=== PATIENT | female | born 1970 | race African-American/Black ===

== ENCOUNTER 2024-02-02 08:45 | Outpatient (CLI) | payer OTHER, SELFPAY ==
--- NOTE | ~2024-02-02 | CT_ITS ---
EXAMINATION: CT sinus wo con DATE: 02/02/2024 09:13 INDICATION: Chronic sinusitis. TECHNIQUE: Computed tomography (CT) of the paranasal sinuses was performed without intravenous contra st. Iterative reconstruction technique was employed. The dose-length product was 287.97 mGy-cm. 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 The ethmoid sinuses are clear. There is mild muc osal thickening in right sphenoid sinus. There is minimal mucosal thickening in the maxillary sinuses . The ostiomeatal units are patent. There is rightward deviation of superior nasal septum and leftwar d deviation of the inferior nasal septum. 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 IMPRESSION: 1. Rightward deviation of superior nasal septum and leftward deviation of inferior nasal septum. Reviewed, dictated and finalized at location A. IMPRESSION: 1. Rightward deviation of superior nasal septum and leftward deviation of infer ior nasal septum.
== END 2024-02-02 08:46 ==
LOC: MICIMG 08:48
PROVIDERS: PCP Allergy & Immunology; Visit Provider Allergy & Immunology
DX: J34.2 Deviated nasal septum (principal)
CPT/HCPCS: 70486